=== PATIENT | male | born 1985 | race African-American/Black ===

== ENCOUNTER 2022-09-30 12:42 | Emergency (ER) | payer MEDICAID, OTHER ==
[~2022-09-30] VITALS: Ht 170.2 cm; Wt 107.0 kg
[2022-09-30 12:53] VITALS: BP 123/73
[2022-09-30 13:29] LABS: CLARITY URINE CLOUDY (CLEAR); COLOR URINE YELLOW (YELLOW); KETONES URINE NEGATIVE (NEGATIVE); LEUKOCYTE ESTERASE URINE 3+ (NEGATIVE); NITRITE URINE NEGATIVE (NEGATIVE); OCCULT BLOOD URINE 3+ (NEGATIVE); PH URINE 8.5 (4.5-8.0); PROTEIN URINE 2+ (NEGATIVE); SPECIFIC GRAVITY URINE 1.026 (1.005-1.030)
[2022-09-30] MEDS ORDERED: CEFP200T13 MT (15:50)
== END 2022-09-30 16:34 | disposition home or self-care (01) ==
LOC: ER 14:58
DX: N39.0 Urinary tract infection, site not specified (principal); Z90.49 Acquired absence of other specified parts of digestive tract
CPT/HCPCS: 81003; 87186; 99283